=== PATIENT | male | born 1990 | race Caucasian/White ===

== ENCOUNTER 2017-08-02 11:13 | Emergency (ER) | payer MEDICAID ==
--- NOTE | 2017-08-02 11:59 | CPEKG ---
Heart Rate: 66 RR Interval: 909 P-R Interval: 168 QRSD Interval: 88 QT Interval: 380 QTC Interval: 399 P [place]: 4 QRS [place]: 102 T Wave [place]: 52 EKG Severity - OTHERWISE NORMAL ECG - EKG Impression: SINUS RHYTHM EKG Impression: BORDERLINE RIGHT AXIS DEVIATION Electronically Signed By: Shlomo Montelongo 02-Aug-2017 16:19:42
[2017-08-02] MEDS ORDERED: NS 1,000 ML IV ONE (12:12)
[2017-08-02 12:17] LABS: PLATELET COUNT 234 10^3/uL (150-400)
--- NOTE | 2017-08-02 13:45 | EDPHY ---
H & P Smoking Status: Never smoked Time Seen by Provider: 08/02/17 11:35 HPI/ROS: CHIEF COMPLAINT: Syncopal episode HISTORY OF PRESENT ILLNESS: 26-year-old male presents to the emergency department with his after having syncopal episode at home. The patient has a known history of pseudoseizures. He has no history of epilepsy. He is prescribed medication also for symptoms of anxiety. He was started on these medications a few months ago for severe symptoms of anxiety. He denies any chest pain or difficulty breathing. He states that he was just sitting at home and had an episode where he felt extremely anxious and felt like his heart was racing. He denies chest pain or difficulty breathing. Denies abdominal pain. He does not feel nauseous. He does not feel that he sustained any trauma. He does not have a headache. No reports of seizure activity. He did not bite his tongue. He was not incontinent of urine. No history of confusion or postictal state per his was at bedside. REVIEW OF SYSTEMS: Constitutional: No fever, no chills. Eyes: No double or blurry vision. ENT: No sore throat. Respiratory: No cough, no shortness of breath. Cardiac: No chest pain. Gastrointestinal: No abdominal pain, vomiting or diarrhea. Genitourinary: No dysuria. Musculoskeletal: No neck or back pain. Skin: No rashes. Neurological: No headache. (Chio Lara) Past Medical/Surgical History: Pseudoseizures, anxiety, depression (Chio Lara) Social History: (Chio Lara) Physical Exam: General Appearance: Alert, no distress. No visible signs of trauma to his head. He is mentating normally and answering questions appropriately. Eyes: Pupils equal and round. Extraocular motions are all intact. ENT: Mouth: Mucous membranes moist. Respiratory: No wheezing, rhonchi, or rales, lungs are clear to auscultation. Cardiovascular: Regular rate and rhythm. Gastrointestinal: Abdomen is soft and nontender, no masses, no rebound or guarding, bowel sounds normal. Neurological: Alert and oriented x 3, cranial nerves II through XII grossly intact Skin: Warm and dry, no rashes. Musculoskeletal: Nontender to palpate along the cervical, thoracic or lumbar spine. Neck is supple. Extremities: Full range of motion and no peripheral edema. Psychiatric: Patient is oriented X 3, there is no agitation. (Chio Lara) Constitutional: Initial Vital Signs Temperature (C) 36.4 C 08/02/17 11:14 Heart Rate 75 08/02/17 11:14 Respiratory Rate 18 08/02/17 11:14 Blood Pressure 145/94 H 08/02/17 11:14 O2 Sat (%) 96 08/02/17 11:14 O2 Delivery Mode Room Air Allergies/Adverse Reactions: amoxicillin [From Amoxil] Allergy (Intermediate, Verified 08/02/17 11:23) Hives cefaclor [From Ceclor] Allergy (Intermediate, Verified 08/02/17 11:23) Hives ciprofloxacin [From Cipro] Allergy (Intermediate, Verified 08/02/17 11:23) Hives sulfamethoxazole [From Septra] Allergy (Intermediate, Verified 08/02/17 11:23) Hives trimethoprim [From Septra] Allergy (Intermediate, Verified 08/02/17 11:23) Hives sertraline Allergy (Mild, Verified 08/02/17 11:22) pseudosz Home Medications: Medication Instructions Recorded ARIPiprazole [Abilify 10 mg (*)] 10 mg PO DAILY 08/02/17 FENOFIBRATE 160 mg PO 08/02/17 FLUoxetine [PROzac] 20 mg PO 08/02/17 Gabapentin [Neurontin 100 MG (*)] 100 mg PO HS 08/02/17 LORAZEPAM 08/02/17 hydrOXYzine HCL [hydrOXYzine HCL 25 mg PO 08/02/17 (RX)] traZODone [traZODONE 100MG (*)] 100 mg PO 08/02/17 Medical Decision Making - Diagnostics Imaging: I viewed and interpreted images myself - Diagnostics EKG Interpretation: EKG: Complete interpretation has been separately recorded in the [employer] archive. Summary impression: Sinus rhythm (Shlomo Montelongo) ED Course/Re-evaluation: 26-year-old male presents to the emergency department after having syncopal episode versus symptoms of anxiety. His laboratory studies including CBC, chemistry and troponin were all negative. His EKG was within normal limits. Patient was hydrated and given 1 L of IV normal saline. He had no seizure activity in the emergency department. He was drinking juice and was feeling comfortable being discharged home. (Chio Lara) Differential Diagnosis: Syncope including but not limited to vasovagal syncope, arrhythmia, dehydration , and blood loss. (Chio Lara) Other Provider: PHYSICIAN DOCUMENTATION: The patient was evaluated and managed by the Physician Buffing Machine Tender. My co- signature indicates that I have reviewed this chart and I agree with the findings and plan of care as documented. I am the secondary supervising physician. (Shlomo Montelongo) - Data Points Laboratory Results: Laboratory Results 08/02/17 12:00 08/02/17 12:00 Medications Given: Discontinued Medications Sodium Chloride (Ns) 1,000 mls @ 0 mls/hr IV ONCE ONE PRN Reason: Wide Open Stop: 08/02/17 12:13 Last Admin: 08/02/17 12:15 Dose: 1,000 mls Departure - Departure Disposition: Home, Routine, Self-Care Clinical Impression: Near syncope Condition: Good Instructions: Near Syncope (ED) Additional Instructions: Return if you develop chest pain, shortness of breath, or if you feel worse in any way. Follow up with your primary care provider to discuss your medications. Referrals: CHUN STEVEN [Other] - 1-2 days without fail
[2017-08-02 14:03] VITALS: BP 117/73; PULSE 77; RESP 15; TEMP 92.2; O2SAT 92
== END 2017-08-02 13:59 | disposition home or self-care (01) ==
DX: R55 Syncope and collapse (principal)